=== PATIENT | male | born 1985 | race Caucasian/White ===

== ENCOUNTER 2018-08-31 11:32 | Emergency (ER) | payer MEDICARE, MEDICAID ==
[~2018-08-31] VITALS: Ht 167.6 cm; Wt 79.4 kg
[~2018-08-31 11:32] MED LIST: MEDICAL MARIJUANA; METH5TAB2 PO
[2018-08-31 11:40] VITALS: BP 140/80
[2018-08-31] MEDS ORDERED: KETOROLAC 30 MG/1 ML ONE (12:58)
[2018-08-31] MEDS ORDERED: SODIUM CHLORIDE FLUSH 10ML SYR IVF ONE (13:00)
[2018-08-31] MEDS ORDERED: KETOROLAC 30 MG/1 ML IVPush ONE (13:00)
[2018-08-31 13:31] LABS: BASOPHILS # (AUTO) 0.04 x10^3/uL (0-0.1); BASOPHILS % (AUTO) 1 % (0-1); EOSINOPHILS # (AUTO) 0.04 x10^3/uL (0-0.4); EOSINOPHILS % (AUTO) 1 % (1-7); LYMPHOCYTES # (AUTO) 1.39 x10^3/uL (1-3.4); LYMPHOCYTES % (AUTO) 23 % (22-44); MD NO; MEAN CORPUSCULAR HEMOGLOBIN 30.2 pg (27.5-34.5); MEAN CORPUSCULAR HGB CONC 33.6 g/dL (33.2-36.2); MEAN CORPUSCULAR VOLUME 89.9 fL (81-97); MEAN PLATELET VOLUME 8.3 fL (7.4-10.4); MONOCYTES # (AUTO) 0.82 x10^3/uL (0.2-0.8); MONOCYTES % (AUTO) 13 % (2-9); NEUTROPHILS # (AUTO) 3.84 x10^3/uL (1.8-6.8); NEUTROPHILS % (AUTO) 63 % (42-75); PLATELET COUNT 246 x10^3/uL (130-400); RED BLOOD COUNT 5.53 x10^6/uL (4.38-5.82); RED CELL DISTRIBUTION WIDTH 13.4 % (9.4-14.8)
[2018-08-31 13:35] LABS: ALBUMIN 4.3 g/dL (3.4-5.0); ANION GAP 4 mmol/L (5-15); CALCIUM 9.4 mg/dL (8.5-10.1); CHLORIDE 107 mmol/L (98-107); CREATININE 0.86 mg/dL (0.7-1.3)
[2018-08-31] MEDS ORDERED: OMNIPAQUE 350 MG/ML, 100ML BOTTLE ONE (14:02)
--- NOTE | 2018-08-31 14:49 | NUR ---
PT WITH PAIN 5/10, ASKING FOR ADDITIONAL TORDAL.
== END 2018-08-31 15:39 | disposition home or self-care (01) ==
LOC: ED 14:53
DX: H66.002 Acute suppurative otitis media without spontaneous rupture of ear drum, left ear (principal); J03.00 Acute streptococcal tonsillitis, unspecified; L04.0 Acute lymphadenitis of face, head and neck; F31.9 Bipolar disorder, unspecified
CPT/HCPCS: 36415; 70491; 80048; 82040; 85025; 96374; 99284; J1885; Q9967

== ENCOUNTER 2018-09-04 18:58 | Emergency (ER) | payer MEDICARE, MEDICAID ==
[~2018-09-04] VITALS: Ht 167.6 cm; Wt 79.6 kg
[2018-09-04] MEDS ORDERED: DEXAMETHASONE 4 MG TABLET PO ONE (20:00)
[2018-09-04] MEDS ORDERED: DEXAMETHASONE 4 MG TABLET ONE (20:07)
--- NOTE | 2018-09-04 20:12 | NUR ---
PT HERE FOR PAINFUL THROAT AND DIFFICULTY SWALLOWING. PT SPEAKING IN FULL SENTENCES AND MANAGING SECRETIONS. PT MEDICATED WITH DECADRON. LAB AT BEDSIDE. CALL LIGHT IN REACH
[2018-09-04 20:34] LABS: BASOPHILS # (AUTO) 0.03 x10^3/uL (0-0.1); BASOPHILS % (AUTO) 0 % (0-1); EOSINOPHILS # (AUTO) 0.12 x10^3/uL (0-0.4); EOSINOPHILS % (AUTO) 2 % (1-7); LYMPHOCYTES % (AUTO) 27 % (22-44); MD SCAN; MEAN CORPUSCULAR HEMOGLOBIN 30.1 pg (27.5-34.5); MEAN CORPUSCULAR HGB CONC 33.8 g/dL (33.2-36.2); MEAN CORPUSCULAR VOLUME 89.1 fL (81-97); MEAN PLATELET VOLUME 8.3 fL (7.4-10.4); MONOCYTES # (AUTO) 0.85 x10^3/uL (0.2-0.8); MONOCYTES % (AUTO) 12 % (2-9); NEUTROPHILS # (AUTO) 4.21 x10^3/uL (1.8-6.8); NEUTROPHILS % (AUTO) 59 % (42-75); PLATELET COUNT 237 x10^3/uL (130-400); RED BLOOD COUNT 5.46 x10^6/uL (4.38-5.82); RED CELL DISTRIBUTION WIDTH 12.8 % (9.4-14.8)
[2018-09-04 20:38] LABS: ALANINE AMINOTRANSFERASE 24 U/L (12-78); ALBUMIN 3.9 g/dL (3.4-5.0); ANION GAP 9 mmol/L (5-15); CALCIUM 9.1 mg/dL (8.5-10.1); CHLORIDE 104 mmol/L (98-107); CREATININE 0.91 mg/dL (0.7-1.3)
[2018-09-04 20:40] LABS: ALKALINE PHOSPHATASE 76 U/L (45-117); BILIRUBIN,TOTAL 0.3 mg/dL (0.2-1.0); TOTAL PROTEIN 7.9 g/dL (6.4-8.2)
--- NOTE | 2018-09-04 21:18 | NUR ---
PIV PLACED. PT TO HAVE CT. VSS. CALL LIGHT IN REACH
--- NOTE | 2018-09-04 21:42 | NUR ---
PT TO CT
[2018-09-04] MEDS ORDERED: OMNIPAQUE 350 MG/ML, 100ML BOTTLE ONE (21:51)
--- NOTE | 2018-09-04 22:11 | NUR ---
PT RESTING. PT REQUESTING TORASOL FOR PAIN. WAITING FOR MD ORDER. CALL LIGHT IN REACH
[2018-09-04] MEDS ORDERED: KETOROLAC 30 MG/1 ML ONE (22:16)
[2018-09-04] MEDS ORDERED: KETOROLAC 30 MG/1 ML IVPush ONE (22:30)
[2018-09-04 22:50] VITALS: BP 106/55
--- NOTE | 2018-09-04 22:50 | NUR ---
Assist RN: patient discharged with prescriptions and instruction. verbalized understanding.
== END 2018-09-04 22:52 | disposition home or self-care (01) ==
LOC: ED 20:49
DX: L04.0 Acute lymphadenitis of face, head and neck (principal); F31.9 Bipolar disorder, unspecified
CPT/HCPCS: 36415; 70491; 80053; 83605; 85025; 86140; 87040; 96374; 99284; J1885; Q9967

== ENCOUNTER 2019-07-13 10:17 | Emergency (ER) | payer MEDICARE, MEDICAID ==
[~2019-07-13] VITALS: Ht 167.6 cm; Wt 82.0 kg
[2019-07-13] MEDS ORDERED: LIDOCAINE-MPF 1%, 5ML ONE (10:38)
[2019-07-13] MEDS ORDERED: DIPH,PERTUSS(ACELL),TET VAC/PF 0.5 ML IM-VACC ONE ×2 (10:39→11:00)
[2019-07-13] MEDS ORDERED: LIDOCAINE-MPF 1%, 5ML INFIL ONE (11:00)
[2019-07-13] MEDS ORDERED: NEOSPORIN OINT. PKT 1 PACKET ONE (11:13)
[2019-07-13 11:25] VITALS: BP 127/64
== END 2019-07-13 11:27 | disposition home or self-care (01) ==
LOC: ED 10:46
DX: S61.211A Laceration without foreign body of left index finger without damage to nail, initial encounter (principal); W26.9XXA Contact with unspecified sharp object(s), initial encounter; Y93.89 Activity, other specified; Y92.89 Other specified places as the place of occurrence of the external cause; Y92.69 Other specified industrial and construction area as the place of occurrence of the external cause; Y99.0 Civilian activity done for income or pay
CPT/HCPCS: 90471; 90715; 99283

== ENCOUNTER 2020-07-11 12:43 | Emergency (ER) | payer MEDICARE, MEDICAID ==
[~2020-07-11] VITALS: Ht 167.6 cm; Wt 86.6 kg
--- NOTE | 2020-07-11 12:50 | NUR ---
EKG done in triage.
--- NOTE | 2020-07-11 13:04 | NUR ---
PT AMBULATORY TO ROOM FROM LOBBY AT THIS TIME.
[2020-07-11] MEDS ORDERED: METH10TA2 PO (13:23)
[2020-07-11] MEDS ORDERED: LAMO5TB.6 PO (13:23)
[2020-07-11] MEDS ORDERED: DIVA500T4 PO (13:23)
[2020-07-11] MEDS ORDERED: OXYC-380 PO (13:23)
--- NOTE | 2020-07-11 13:24 | NUR ---
ONSET OF CP LAST NIGHT, CONTINUES THIS AM. NON-RADIATING, INCREASES WITH ACTIVITY AND INSPIRATION. ALL MONITORS PLACED, VSS, NAD NOTED. CALL LIGHT W/I REACH. AT BEDSIDE. CALL LIGHT W/I REACH. PROVIDER EVAL PENDING
[2020-07-11 13:27] VITALS: BP 123/88
--- NOTE | 2020-07-11 14:10 | NUR ---
PT STATES HE NEEDS TO LEAVE TO [employer] AND [employer] CHILD FROM [employer]. SILAS CHAPMAN NOTED. PT LEAVING AMA
== END 2020-07-11 14:34 | disposition left against medical advice (07) ==
LOC: ED 14:28
DX: R07.9 Chest pain, unspecified (principal); R05 Cough; Z53.21 Procedure and treatment not carried out due to patient leaving prior to being seen by health care provider
CPT/HCPCS: 93005; 99283

== ENCOUNTER 2020-07-12 09:15 | Emergency (ER) | payer MEDICARE, MEDICAID ==
[~2020-07-12] VITALS: Ht 167.6 cm; Wt 87.7 kg
[~2020-07-12 09:15] MED LIST changes: +DIVA500T4 PO; +LAMO5TB.6 PO; +METH10TA2 PO; +OXYC-380 PO
[2020-07-12] MEDS ORDERED: ASPIRIN 81 MG TABLET CHEW PO ONE (09:30)
--- NOTE | 2020-07-12 09:30 | NUR ---
RONNELL CANALES WAS IN TO SEE PT. WILLIAM TIERNEY'WD WITH PT. PT STATES CHEST PAIN STARTED LAST NIGHT, STATES HE DID A LOT OF YARD WORK YESTERDAY. Addendum: 07/12/20 at 0938 by DENISHAON PT STATES CHEST PAIN STARTED 2 NIGHTS AGO.
--- NOTE | 2020-07-12 09:31 | NUR ---
PT ON ALL MONITORS.
[2020-07-12] MEDS ORDERED: ASPIRIN 81 MG TABLET CHEW ONE (09:35)
--- NOTE | 2020-07-12 09:38 | NUR ---
PT MEDICATED PER ORDERS.
[2020-07-12 09:49] LABS: BASOPHILS % (AUTO) 0 % (0-1); EOSINOPHILS % (AUTO) 1 % (1-7); LYMPHOCYTES % (AUTO) 26 % (22-44); MEAN CORPUSCULAR HEMOGLOBIN 30.1 pg (27.5-34.5); MEAN CORPUSCULAR HGB CONC 34.5 g/dL (33.2-36.2); MEAN PLATELET VOLUME 7.7 fL (7.4-10.4); MONOCYTES % (AUTO) 8 % (2-9); NEUTROPHILS % (AUTO) 64 % (42-75); PLATELET COUNT 291 x10^3/uL (130-400); RED BLOOD COUNT 5.67 x10^6/uL (4.38-5.82); RED CELL DISTRIBUTION WIDTH 13.3 % (9.4-14.8)
[2020-07-12 09:50] LABS: MD NO
[2020-07-12 09:59] LABS: ALANINE AMINOTRANSFERASE 32 U/L (12-78); ALBUMIN 4.5 g/dL (3.4-5.0); ANION GAP 6 mmol/L (5-15); CALCIUM 9.7 mg/dL (8.5-10.1); CHLORIDE 105 mmol/L (98-107); CREATININE 0.81 mg/dL (0.7-1.3)
[2020-07-12 10:04] LABS: ALKALINE PHOSPHATASE 62 U/L (45-117); BILIRUBIN,TOTAL 0.4 mg/dL (0.2-1.0); TOTAL PROTEIN 8.2 g/dL (6.4-8.2); TROPONIN I < 0.015 ng/mL (0.000-0.045)
--- NOTE | 2020-07-12 10:16 | NUR ---
ERP IN FOR RECHECK.
[2020-07-12 11:00] VITALS: BP 126/93
--- NOTE | 2020-07-12 11:22 | NUR ---
ERP WAS IN FOR RECHECK. D/C INSTRUCTIONS, MEDS & F/U APPT RV'WD WITH PT, HE VERBALIZES UNDERSTANDING. RX GIVEN X1. INSTRUCTED TO RETURN TO ED FOR ANY CONCERNING SYMPTOMS. AMBULATED OUT OF ED WITHOUT DIFFICULTY.
== END 2020-07-12 11:23 | disposition home or self-care (01) ==
LOC: ED 11:15
DX: R07.89 Other chest pain (principal); R05 Cough
CPT/HCPCS: 36415; 71045; 80053; 83690; 84484; 85025; 85379; 93005; 99285